=== PATIENT | male | born 1960 | race Caucasian/White ===

== ENCOUNTER 2024-10-10 14:56 | Emergency (ER) | payer BC ==
[~2024-10-10] VITALS: Ht 177.8 cm; Wt 90.7 kg
[2024-10-10] MEDS ORDERED: Tdap Vaccine 0.5 ML SYR (Adult Vaccine) IM ONE (15:20)
[2024-10-10] MEDS ORDERED: EPINEPHrine/Lidocaine Hydroc 20 ML VIAL SC ONE (15:30)
[2024-10-10] MEDS ORDERED: CEPHALEXIN500 M1 PO (16:16)
[2024-10-10] MEDS ORDERED: ceFAZolin sodium 1 GM VIAL IM ONE (16:20)
[2024-10-10] MEDS ORDERED: Water, Sterile 10 ML VIAL IM ONE (16:25)
== END 2024-10-10 17:14 | disposition home or self-care (01) ==
LOC: ED 14:56
DX: S50.351A Superficial foreign body of right elbow, initial encounter (principal); W22.8XXA Striking against or struck by other objects, initial encounter; Y93.89 Activity, other specified; Y92.89 Other specified places as the place of occurrence of the external cause; Y99.8 Other external cause status